=== PATIENT | female | born 1935 | race Caucasian/White ===

== ENCOUNTER 2023-09-21 11:35 | Emergency (ER) | payer MEDICARE, OTHER | END 2023-09-21 12:48 | disposition home or self-care (01) | LOC: BURERS 11:35 | DX: S40.012A Contusion of left shoulder, initial encounter (principal); S80.212A Abrasion, left knee, initial encounter; W01.0XXA Fall on same level from slipping, tripping and stumbling without subsequent striking against object, initial encounter ==

== ENCOUNTER 2023-12-02 17:19 | Emergency (ER) | payer MEDICARE, OTHER ==
[2023-12-02] MEDS ORDERED: Bacitracin 1 PK ONE (17:33)
== END 2023-12-02 18:38 | disposition home or self-care (01) ==
LOC: BURERS 17:19
DX: S09.90XA Unspecified injury of head, initial encounter (principal); S00.01XA Abrasion of scalp, initial encounter; S80.211A Abrasion, right knee, initial encounter; S00.81XA Abrasion of other part of head, initial encounter; I10 Essential (primary) hypertension; W01.10XA Fall on same level from slipping, tripping and stumbling with subsequent striking against unspecified object, initial encounter
CPT/HCPCS: 70450; 72125

== ENCOUNTER 2024-01-04 16:19 | Emergency (ER) | payer MEDICARE, OTHER ==
[~2024-01-04 16:19] MED LIST: Iopamidol 370 76% 100 ML VIAL ONE
[2024-01-04 16:35] LABS: #Basophils 0.1 thou/uL (0.0-0.2); #Eosinphils 0.1 thou/uL (0.0-0.7); #Lymphocytes 1.7 thou/uL (1.20-3.40); #Monocytes 0.6 thou/uL (0.11-0.59); #Neutrophils 4.6 thou/uL (1.40-6.50); %Basophils 1.1 % (0.0-1.0); %Eosinophils 1.9 % (0.0-10.0); %Lymphocytes 23.9 % (21.0-51.0); %Monocytes 8.2 % (0.0-10.0); %Neutrophils 64.8 % (42.0-75.0); Hematocrit 39.6 % (36.0-47.0); Hemoglobin 12.7 g/dL (12.0-16.0); Mean Corpuscular Hemoglobin 27.9 pg (27.0-31.0); Mean Corpuscular Volume 87.1 fl (78.0-98.0); Mean Platelet Volume 7.4 fL (7.4-10.4); Platelet Count 228 10x3/uL (130-400); RBC Distribution Width 12.8 % (11.5-14.5); Red Blood Cell (RBC) Count 4.55 mill/uL (4.20-5.40); White Blood Cell (WBC) Count 7.1 10x3/uL (4.8-10.8)
[2024-01-04 16:42] LABS: INR-International Normal Ratio 1.1; Prothrombin Time 13.7 sec (12.0-14.7)
[2024-01-04 16:43] LABS: PTT 27.3 sec (22.9-36.1)
[2024-01-04 16:52] LABS: ALT (SGPT) 12 U/L (8-55); AST (SGOT) 15 U/L (5-34); Albumin 3.8 g/dL (3.4-4.8); Alkaline Phosphatase 92 U/L (40-110); Anion Gap 13 mmol/L (10-20); BUN (Urea Nitrogen) 43 mg/dL (9.8-20.1); Bilirubin, Total 0.3 mg/dL (0.2-1.2); Calc. Creatinine Clearance 0 mL/min (70-130); Calcium 9.2 mg/dL (7.8-10.44); Carbon Dioxide 22 mmol/L (23-31); Chloride 108 mmol/L (98-107); Estimated GFR 31; Globulin 2.6 g/dL (2.4-3.5); Glucose 111 mg/dL (83-110); Protein, Total 6.4 g/dL (5.8-8.1); Sodium 139 mmol/L (136-145)
[2024-01-04 16:54] LABS: Troponin I Less than 0.010 ng/mL (< 0.028)
[2024-01-04] MEDS ORDERED: Aspirin Chewable 81 MG TAB ONE (17:14)
[2024-01-04 17:59] LABS: Bilirubin Negative (Negative); Blood, Urine Negative (Negative); Clarity Clear (Clear); Glucose, Urine (Dipstick) Negative (Negative); Ketone, Urine Negative (Negative); Leukocyte Negative (Negative); Nitrite Negative (Negative); Protein, Urine (Dipstick) Negative (Neg-Trace); Urobilinogen 0.2 mg/dL (Less than 2); pH, Urine 5.5 (5.0-9.0)
[2024-01-04 18:05] LABS: Bacteria/HPF None Seen HPF (None Seen); CAUTI Indications for Culture Alt mental st,lethar; RBC/HPF None Seen HPF (0-3); Squamous Epithelial 0-3 HPF (0-3); WBC/HPF None Seen HPF (0-3)
[2024-01-04 18:06] LABS: Other Microscopic Description C&S ORERED BY DR.; Urine Culture Reflex No No
== END 2024-01-04 22:35 | disposition short-term general hospital (02) ==
LOC: BURERS 16:19
DX: G45.9 Transient cerebral ischemic attack, unspecified (principal); I10 Essential (primary) hypertension
CPT/HCPCS: 36415; 36416; 51701; 70450; 70496; 70498; 71045; 80053; 81001; 83605; 84443; 84484; 85025; 85610; 85730; 87086; 93005; Q9967

== ENCOUNTER 2024-04-08 16:38 | Emergency (ER) | payer MEDICARE, OTHER ==
[2024-04-08 17:26] LABS: #Basophils 0.1 thou/uL (0.0-0.2); #Eosinphils 0.2 thou/uL (0.0-0.7); #Lymphocytes 1.5 thou/uL (1.20-3.40); #Monocytes 0.4 thou/uL (0.11-0.59); #Neutrophils 5.2 thou/uL (1.40-6.50); %Basophils 1.2 % (0.0-1.0); %Eosinophils 2.5 % (0.0-10.0); %Lymphocytes 20.3 % (21.0-51.0); %Monocytes 5.6 % (0.0-10.0); %Neutrophils 70.4 % (42.0-75.0); Hematocrit 36.8 % (36.0-47.0); Hemoglobin 12.3 g/dL (12.0-16.0); Mean Corpuscular HGB CONC 33.3 g/dL (32.0-36.0); Mean Corpuscular Hemoglobin 27.9 pg (27.0-31.0); Mean Corpuscular Volume 83.7 fl (78.0-98.0); Platelet Count 213 10x3/uL (130-400); RBC Distribution Width 11.6 % (11.5-14.5); White Blood Cell (WBC) Count 7.4 10x3/uL (4.8-10.8)
[2024-04-08 17:36] LABS: Prothrombin Time 13.3 sec (12.0-14.7)
[2024-04-08 17:37] LABS: PTT 28.1 sec (22.9-36.1)
[2024-04-08 17:45] LABS: ALT (SGPT) 11 U/L (8-55); AST (SGOT) 15 U/L (5-34); Albumin 3.6 g/dL (3.4-4.8); Alkaline Phosphatase 86 U/L (40-110); Anion Gap 15 mmol/L (10-20); BUN (Urea Nitrogen) 26 mg/dL (9.8-20.1); Bilirubin, Total 0.4 mg/dL (0.2-1.2); Calc. Creatinine Clearance 0 mL/min (70-130); Calcium 9.5 mg/dL (7.8-10.44); Carbon Dioxide 24 mmol/L (23-31); Chloride 108 mmol/L (98-107); Estimated GFR 28; Globulin 2.9 g/dL (2.4-3.5); Glucose 232 mg/dL (83-110); Protein, Total 6.5 g/dL (5.8-8.1); Sodium 143 mmol/L (136-145)
[2024-04-08 17:47] LABS: Troponin I Less than 0.010 ng/mL (< 0.028)
[2024-04-08] MEDS ORDERED: Aspirin Chewable 81 MG TAB ONE (18:03)
== END 2024-04-08 21:06 | disposition short-term general hospital (02) ==
LOC: BURERS 16:38
DX: R47.02 Dysphasia (principal); I10 Essential (primary) hypertension; W01.0XXA Fall on same level from slipping, tripping and stumbling without subsequent striking against object, initial encounter; Z86.73 Personal history of transient ischemic attack (TIA), and cerebral infarction without residual deficits; Z79.899 Other long term (current) drug therapy
CPT/HCPCS: 36415; 36416; 70450; 71045; 80053; 84484; 85025; 85610; 85730; 93005; 94760